=== PATIENT | female | born 1965 | race Caucasian/White ===

== ENCOUNTER 2024-03-21 14:07 | Emergency (ER) | payer OTHER ==
[2024-03-21 14:36] VITALS: BP 123/74; PULSE 76; RESP 16; TEMP 98.9; BMI 21.1
[2024-03-21 15:06] LABS: HEMATOCRIT 42.4 % (32.4-45.2); MCH 33.7 pg (25.7-33.7); MCHC 33.1 g/dl (32.0-36.0); MEAN CELL VOLUME 101.7 fl (80-96); MEAN PLT VOLUME 7.3 fl (7.5-11.1); PLATELET COUNT 296.4 10^3/uL (134-434); RBC 4.17 10^6/uL (3.60-5.2); RDW 13.7 % (11.6-15.6); WHITE BLOOD COUNT 8.8 10^3/uL (4.0-10.8)
[2024-03-21 15:20] LABS: EPITHELIAL CELLS 0-5 /hpf
[2024-03-21 15:22] LABS: ALBUMIN 4.5 g/dl (3.4-5.0); BILIRUBIN,TOTAL 0.7 mg/dl (0.2-1); CALCIUM 9.8 mg/dl (8.5-10.1); CREATININE 0.7 mg/dl (0.6-1.3); POTASSIUM 3.4 mmol/L (3.5-5.1); TOT PROT 6.3 g/dl (6.4-8.2)
[2024-03-21] MEDS ORDERED: ACETAMINOPHEN INJECTION 100 ML IVPB ONE (15:44)
[2024-03-21 15:49] LABS: MACROCYTOSIS 1+; PLATELET ESTIMATE ADEQUATE
[2024-03-21] MEDS: SODIUM CHLORIDE 1,000 ML IV STA (15:50)
[2024-03-21] MEDS: ACETAMINOPHEN 1000 MG/100 ML BAG IVPB ONE (15:50)
== END 2024-03-21 17:17 | disposition home or self-care (01) ==
LOC: FER 14:07
PROC: 3E030NZ Introduction of Analgesics, Hypnotics, Sedatives into Peripheral Vein, Open Approach (ICD-10-PCS; principal; 2024-03-21)
PROC: 3E0337Z Introduction of Electrolytic and Water Balance Substance into Peripheral Vein, Percutaneous Approach (ICD-10-PCS; 2024-03-21)
DX: R19.7 Diarrhea, unspecified (principal); R14.0 Abdominal distension (gaseous)
CPT/HCPCS: 36415; 80053; 81003; 81015; 83690; 85027; 87045; 87046; 87209; 87493; 99284-25; J0131

== ENCOUNTER 2024-03-23 09:34 | Emergency (ER) | payer OTHER ==
[2024-03-23 09:50] VITALS: BP 154/100; PULSE 100; RESP 20; TEMP 98.6; BMI 21.1
[2024-03-23] MEDS ORDERED: ACETAMINOPHEN INJECTION 100 ML IVPB ONE (10:00)
[2024-03-23] MEDS: SODIUM CHLORIDE 1,000 ML IV STA (10:18)
[2024-03-23] MEDS: ACETAMINOPHEN 1000 MG/100 ML BAG IVPB ONE (10:18)
[2024-03-23 10:33] LABS: HEMATOCRIT 44.9 % (32.4-45.2); HEMOGLOBIN 14.4 G/dL (10.7-15.3); MCH 32.1 pg (25.7-33.7); MEAN CELL VOLUME 100.2 fl (80-96); MEAN PLT VOLUME 7.4 fl (7.5-11.1); PLATELET COUNT 306.2 10^3/uL (134-434); RBC 4.48 10^6/uL (3.60-5.2); RDW 13.4 % (11.6-15.6); WHITE BLOOD COUNT 6.8 10^3/uL (4.0-10.8)
[2024-03-23 10:39] LABS: PLATELET ESTIMATE ADEQUATE
[2024-03-23 10:41] LABS: ALBUMIN 4.4 g/dl (3.4-5.0); BILIRUBIN,TOTAL 0.9 mg/dl (0.2-1); CALCIUM 9.8 mg/dl (8.5-10.1); CREATININE 0.7 mg/dl (0.6-1.3); POTASSIUM 3.2 mmol/L (3.5-5.1); TOT PROT 6.8 g/dl (6.4-8.2)
== END 2024-03-23 12:22 | disposition home or self-care (01) ==
LOC: FER 09:34
PROC: 3E030NZ Introduction of Analgesics, Hypnotics, Sedatives into Peripheral Vein, Open Approach (ICD-10-PCS; principal; 2024-03-23)
PROC: 3E0337Z Introduction of Electrolytic and Water Balance Substance into Peripheral Vein, Percutaneous Approach (ICD-10-PCS; 2024-03-23)
DX: K52.9 Noninfective gastroenteritis and colitis, unspecified (principal); R10.30 Lower abdominal pain, unspecified
CPT/HCPCS: 36415; 74177-TC; 80053; 85027; 99285-25; J0131; Q9967